=== PATIENT | female | born 1960 | race Caucasian/White ===

== ENCOUNTER 2018-05-10 10:44 | Day surgery (SDC) | payer OTHER ==
[2018-05-10] MEDS ORDERED: ONDANSETRON 4 MG INJ IV (12:30)
[2018-05-10] MEDS ORDERED: CIPROFLOXACIN 400MG/D5W 200 ML IVPB (12:30)
[2018-05-10] MEDS ORDERED: FENTAnyl 50 MCG/ML VIAL IV (12:30)
[2018-05-10] MEDS ORDERED: hydrALAzine 20 MG INJ IV (12:30)
[2018-05-10] MEDS ORDERED: DIPHENHYDRAMINE 50 MG INJ IV (12:30)
[2018-05-10] MEDS ORDERED: LABETALOL HCL 20MG INJ IV (12:30)
[2018-05-10] MEDS ORDERED: HYDROmorphONE 1 MG/5 ML IV SYRINGE IV ×2 (12:30)
[2018-05-10] MEDS ORDERED: IOHEXOL 300MG/ML 30 ML BTL (12:30)
[2018-05-10] MEDS ORDERED: MIDAZOLAM 1 MG/ML 2 ML INJ (12:34)
[2018-05-10] MEDS ORDERED: INDIGOTINDISULFONATE 0.8% 5 ML INJ IV (13:30)
[2018-05-10] MEDS ORDERED: LIDOCAINE 2% (SDV) 5 ML INJ (13:56)
[2018-05-10] MEDS ORDERED: PROPOFOL 20 ML (13:56)
[2018-05-10] MEDS ORDERED: CIPROFLOXACIN 400MG/D5W 200 ML (13:57)
[2018-05-10] MEDS ORDERED: ONDANSETRON 4 MG INJ (13:57)
[2018-05-10] MEDS: MEPERIDINE 25 MG INJ IV (15:09)
[2018-05-10] MEDS: HYDROCODONE/APAP (5/325) TAB PO (16:09)
== END 2018-05-10 16:40 | disposition home or self-care (01) ==
LOC: SDS 10:44
DX: C66.1 Malignant neoplasm of right ureter (principal); I10 Essential (primary) hypertension; E78.5 Hyperlipidemia, unspecified; E03.9 Hypothyroidism, unspecified; Z87.891 Personal history of nicotine dependence; J44.9 Chronic obstructive pulmonary disease, unspecified
CPT/HCPCS: 52355; 74430; 88104; 88305